=== PATIENT | male | born 1995 | race Caucasian/White ===

== ENCOUNTER 2017-12-18 16:29 | Emergency (ER) | payer MEDICAID, SELFPAY ==
[2017-12-18] MEDS ORDERED: HYDROcodone/Acetaminophen 10/325 mg Tablet ONE (16:43)
[2017-12-18] MEDS ORDERED: Azithromycin 250 MG TAB ONE (16:44)
[2017-12-18] MEDS ORDERED: Dexamethasone 4 mg/ml Vial ONE ×2 (16:44→16:58)
== END 2017-12-18 17:10 | disposition home or self-care (01) ==
LOC: BURERS 16:29
DX: H73.012 Bullous myringitis, left ear (principal); J06.9 Acute upper respiratory infection, unspecified; F17.210 Nicotine dependence, cigarettes, uncomplicated
CPT/HCPCS: 99283; J1100

== ENCOUNTER 2017-12-22 12:52 | Emergency (ER) | payer SELFPAY ==
[2017-12-22] MEDS ORDERED: HYDROcodone/Acetaminophen 10/325 mg Tablet ONE (13:07)
[2017-12-22] MEDS ORDERED: predniSONE 20 MG TAB ONE (13:07)
[2017-12-22] MEDS ORDERED: Sulfameth/Trimethoprim DS 800-160mg TAB ONE (13:07)
== END 2017-12-22 13:15 | disposition home or self-care (01) ==
LOC: BURERS 12:52
DX: H66.92 Otitis media, unspecified, left ear (principal); F17.210 Nicotine dependence, cigarettes, uncomplicated
CPT/HCPCS: 99282; J7506